=== PATIENT | male | born 1955 | race Caucasian/White ===

== ENCOUNTER 2016-10-10 10:07 | Emergency (ER) | payer BC ==
[~2016-10-10] VITALS: Ht 177.8 cm; Wt 68.0 kg
[~2016-10-10 10:07] MED LIST: ADULT LOW DOSE81 MG PO; ALBUTEROL-200 PUFFS/ IH; BACTRIM DS 8001 TA1 PO; BACTROBAN2% TP; BREO ELLIPTA 21 EACH IH; DORZOLAMIDE HYD10 M1 OP; KEFLEX500 M1 PO; LIPITOR40 M1 PO; NOMEDS *; OMEPRAZOLE40 MG PO; PREDNISONE 5MG.5 MG PO; PROAIR HFA0.09 MG/AC IH; ZOFRAN4 MG PO
--- NOTE | 2016-10-10 10:20 | Emergency Room Report ---
History of Present Illness Time Seen by [id number] Presenting Problem in Triage Pt arrived: Presenting Problem: Onset of symptoms date/time:/ or onset unknown for: Treatment Prior to Arrival: [employer] Provided by: Sepsis Risk Assessment: Temp: B/P: MAP: Pulse: Resp: Recent fever? Clinical Suspician of Infection? Mental Status: Sepsis Risk: Have you (or family members/close friends) recently traveled outside the [place]? If Yes, where/when: Have you had exposure to infectious disease within the past month? TB? Other? Specify: Source patient, RN notes reviewed, RN/MD Exam Limitations no limitations Comment This is a 61-year-old male patient presented emergency room with left- sided chest wall pain, worse with deep inspiration, worse with palpation over his LEFT chest wall. Patient underwent a cardiac catheterization approximately one week ago, by Dr. Bob Mckeon, which was normal, with the patinet requiring any stents. Patient stated that he went to work since the heart cath, and had no further symptoms. He went to mow his lawn yesterday, and when he walked in the house he started having some reproducible precordial chest wall pain, worse with palpation and deep inspiration. He denies any shortness of breath or diaphoresis. He has an appointment with Dr. Bob Mckeon tomorrow, scheduled for one week ago. ALLERGIES Coded Allergies: No Known Allergies (09/28/16) Home Medications Active Scripts Atorvastatin Calcium (Lipitor 40MG) 40 MG PO QHS #30 TAB Ref 2 Prov: 09/29/16 Aspirin (Adult Low Dose Aspirin EC) 81 MG PO DAILY #30 Ref 2 Prov: 09/29/16 Reported Medications Omeprazole (Omeprazole 40MG) 40 MG PO DAILY Fluticasone/Vilanterol (Breo Ellipta 200-25 Mcg INH) 1 EACH IH DAILY #60 DORZOLAMIDE HCL/TIMOLOL MALEAT (Dorzolamide-Timolol Eye Drops) 10 ML OP BID #10 History Medical History General CAD? No Angina: No DE: No Hypertension? No Hyperlipidemia? No CHF? No DVT? No PE? No COPD? Yes Asthma? No Anemia? No GERD? Yes Gastric ulcers? No GI Bleed? No Hernia? No Thyroid Problems? No Hypothyroidism? No CVA? No Seizures? No Diabetes? No Renal Insuffiency? No End Stage Renal Disease? No UTI? No Stones? No BPH? No GB Disease: No Nephritic Syndrome? No Asplenia? No Hepatitis? No Sickle Cell Disease? No Arthritis? No Migraines? No Cataracts? No Glaucoma? No MRSA? No HIV? No TB? No Anxiety? No Depression? No Cancer? No More? Yes Additional hx: 1. PNEUMONIA 2. CHRONIC BRONCHITIS 3. TOBACCO USE Immunization Hx DT/Tetanus 1-4 Years Ago Pneumonia Received In Past Surgical Hx Previous Surgery?N Family History Family Hx Diabetes Yes CAD Yes Hypertension No Hyperlipidemia No Cancer No TB No Social History Smoking Hx Packs/day 1 1/2 - 2 Packs Alcohol Alcohol: No Review of Systems All Other Systems Reviewed and Negative Cardiovascular chest pain Physical Exam Vital Signs Vital Signs Date Time Temp Pulse Resp B/P Pulse O2 O2 Flow FiO2 Ox Delivery Rate 10/10 1101 98.6 81 16 113/77 99 10/10 1010 98.6 88 16 126/87 99 General Appearance normal appearance, WD/WN, no apparent distress Neck normal inspection, non-tender, supple, full range of motion Respiratory Status Yes: trachea midline, chest symmetrical, tender on palpation (LEFT chest wall). No: respiratory distress. Lung Sounds bilateral: normal breath sounds, lungs clear. Cardiovascular normal exam, regular rate/rhythm, no peripheral edema, no gallop, no JVD, no murmur, no rub, normal peripheral pulses Gastrointestinal normal bowel sounds, normal exam, non tender, soft, no organomegaly Extremities non-tender, normal range of motion, normal inspection Neurologic alert, normal exam, oriented x 3 Mental status normal mood/affect Skin intact, normal color, warm/dry Medical Decision Making LABS/Meds/Orders Pt receiving controlled substance in ED? No Comment Chest x-ray was not taken prior to patient discharge. Upon evaluation patient appears medically stable, no acute distress. I reassured the patient of his normal lab results and electrocardiogram obtained today, which in conjunction with his recent cardiac catheterization make his risk for an ACS very low at this time. Patient encouraged to keep his appointment with Dr. Bob Mckeon tomorrow, as already scheduled. His chest wall pain appears pleuritic in nature, noncardiac. Results/Orders Laboratory Tests 10/10/16 1005: Creatine Kinase 168, CK-MB (CK-2) Rel Index 0.8, CK and CKMB Interp 1.3, Troponin I < 0.02 10/10/16 1005: Sodium 138, Potassium 3.8, Chloride 102, Carbon Dioxide 26, BUN 18, Creatinine 1.3, Estimated Creat Clear 57, Estimated GFR (MDRD) 56, Glucose 109 H, Calcium 9.2, Total Bilirubin 0.4, AST 18, ALT 31, Alkaline Phosphatase 79, Total Protein 8.0, Albumin 4.2, Globulin 3.8 H, Albumin/Globulin Ratio 1.1, WBC 6.1, RBC 4.84 , Hgb 15.3, Hct 44.2, MCV 91.2, RDW 13.3, Plt Count 199, MPV 6.5 L, Gran % 71.3 , Gran # 4.4, Lymphocytes % 20.4, Monocytes % 5.8, Eosinophils % 1.8, Basophils % 0.6, Lymphocytes # 1.3, Monocytes # 0.4, Eosinophils # 0.1, Basophils # 0.0, PUBS MCHC 34.6, MCH 31.6 H Orders Procedure Date/time Status CBC WITH AUTO DIFF 10/10 1020 Complete CHEM 12 PROFILE 10/10 1020 Complete ELECTROCARDIOGRAM REQUEST 10/10 1019 Active CHEST(2 VIEWS-NOT PORTABLE) 10/10 1019 Active CARDIAC ENZYMES 10/10 1019 Complete CM/EKG CM/building admin Rhythm Normal Sinus Rhythm Rate 85 Ectopy No Comments no acute ischemic changes EKG rate, NSR, rhythm, no evid. of ischemic chgs, no ectopy, normal QRS, normal MI, normal EKG, no EKG for comparison, non-spec. ST/Twave chgs, ST elevation, ST depression, LBBB, RBBB, ectopy, abnormal Q waves Departure Departure Time of Disposition 1047 Disposition DC Home or Self Care(routine) Clinical Impression Primary Impression: Chest pain Qualifiers: Chest pain type: unspecified Qualified Code: R07.9 - Chest pain, unspecified Condition STABLE Referrals Bob Mckeon MD tomorrow as already scheduled Patient Instructions DI for Chest Pain Additional Instructions Please follow-up with Dr. Bob Mckeon tomorrow, as are the scheduled. Discharge Counseling Counseled pt/family regarding diagnosis, test results, medications/RX, home care, follow up needs Comment Please follow-up with Dr. Bob Mckeon tomorrow, as are the scheduled. ED Critical Care Critical Care No at 1210
[2016-10-10 10:23] LABS: HEMOGLOBIN 15.3 g/dL (14.1-18.0); LYMPH # 1.3 K/mm3 (0.7-4.5); LYMPH % 20.4 % (10-50)
--- OUTSIDE RECORDS SUMMARY | 2016-10-10 10:24 | External Medical Summary Rpt ---
Author Author [employer] Moura, NASEEM Moura Organization [employer] Address Unknown Phone Unavailable
--- OUTSIDE RECORDS SUMMARY | 2016-10-10 10:24 | External Medical Summary Rpt ---
Author Author , Organization [employer] Address Unknown Phone Unavailable Purpose Continuity of Care Document - 09-30-2016 through 2016 Problems Code Diagnosis DOS Provider Status G89.29 Other 09-30-2016 chronic pain J44.9 Chronic 09-30-2016 obstructive pulmonary disease, unspecified K21.9 Gastro-esop 09-30-2016 hageal reflux disease without esophagitis R07.9 Chest pain, 09-30-2016 unspecified B59 PNEUMOCYSTO SIS J44.1 CHRONIC OBSTRUCTIVE PULMONARY DISEASE W (ACUTE) EXACERBATIO N R03.0 Elevated blood-press ure reading, without diagnosis of hypertensio n R07.89 OTHER CHEST PAIN S61.412A LACERATION WITHOUT FOREIGN BODY OF LEFT HAND, INIT ENCNTR Results Labs Lab Lab Date Result Refere Interp Status Commen Order Detail nces retati t Range on Troponin T SerPl Ql (10-01-2016 15:46) Troponi 0.01 0.00-0. complet n I 017 ng/mL 07 ed SerPl-m 15:46 Cnc D Dimer PPP-aCnc (10-01-2016 15:40) D dimer 0.44 0.00-0. complet FEU 017 mg/L 50 ed PPP-mCn 15:40 (FEU) c BNP SerPl-mCnc (10-01-2016 15:40) BNP 14.0 0.0-100 complet SerPl-m 017 pg/mL .0 ed Cnc 15:40 LPL SerPl-cCnc (10-01-2016 15:40) Lipase 47 U/L 6-51 complet SerPl-c 017 ed Cnc 15:40 Comp Metab 1998 Pnl SerPl (10-01-2016 15:40) Anion 1.0 3.0-11. complet Gap3 017 mmol/L 0 ed SerPl-s 15:40 Cnc BUN/Cre 05-06-2 11.8 7.0-25. complet at 017 0 ed SerPl 15:40 Albumin 1.5 1.5-2.5 complet /Glob 017 g/dL ed SerPl 15:40 Globuli 2.8 complet n Ur 017 gm/dL ed Elph-mC 15:40 nc GFR/BSA 68 >60 complet .pred 017 mL/min/ ed SerPl 15:40 1.73 MDRD-Ar VRat Bilirub 0.3 0.3-1.2 complet 017 mg/dL ed SerPl-m 15:40 Cnc ALP 73 U/L 25-100 complet SerPl-c 017 ed Cnc 15:40 ALT 20 U/L 7-40 complet SerPl w 017 ed 15:40 P-5'-P- cCnc Albumin 4.30 3.20-4. complet 017 g/dL 80 ed SerPl-m 15:40 Cnc Prot 7.1 5.7-8.2 complet SerPl-m 017 g/dL ed Cnc 15:40 Calcium 10.0 8.7-10. complet 017 mg/dL 4 ed XXX-sCn 15:40 c CO2 32.0 20.0-31 complet SerPl-s 017 mmol/L .0 ed Cnc 15:40 Chlorid 106 99-109 complet e 017 mmol/L ed SerPl-s 15:40 Cnc Potassi 4.3 3.5-5.5 complet um 017 mmol/L ed Bld-sCn 15:40 c Sodium 139 132-146 complet Bld-sCn 017 mmol/L ed c 15:40 Creat 2 1.10 0.60-1. complet Bld-mCn 017 mg/dL 30 ed c 15:40 BUN 10-01-2 13 9-23 complet Bld-mCn 017 mg/dL ed c 15:40 AST 2 18 U/L 0-33 complet SerPl-c 017 ed Cnc 15:40 Glucose 109 70-100 complet 017 mg/dL ed Bld-mCn 15:40 c CBC W Diff pnl,unspecified Bld (10-01-2016 15:40) Imm 05-06-2 0.01 0.00-0. complet Granulo 017 10*3/mm 03 ed cytes # 15:40 3 Bld Basophi 05-06-2 0.03 0.00-0. complet ls # 017 10*3/mm 20 ed Bld 15:40 3 Auto Eosinop 05-06-2 0.24 0.10-0. complet hil # 017 10*3/mm 30 ed Bld 15:40 3 Auto Monocyt 05-06-2 0.47 0.00-1. complet es # 017 10*3/mm 00 ed Bld 15:40 3 Auto Lymphoc 05-06-2 1.57 0.60-4. complet ytes # 017 10*3/mm 80 ed Bld 15:40 3 Auto Neutrop 05-06-2 4.51 1.50-8. complet hils # 017 10*3/mm 30 ed Bld 15:40 3 Auto Imm 05-06-2 0.1 % 0.0-0.6 complet Granulo 017 ed cytes/l 15:40 euk NFr Bld Basophi 05-06-2 0.4 % 0.0-1.0 complet ls/leuk 017 ed NFr 15:40 Bld Auto Eosinop 05-06-2 3.5 % 0.0-3.0 complet hil/mara 017 ed k NFr 15:40 Bld Auto Monocyt 05-06-2 6.9 % 0.0-12. complet es/leuk 017 0 ed NFr 15:40 Bld Auto Lymphoc 05-06-2 23.0 % 24.0-44 complet ytes/le 017 .0 ed uk NFr 15:40 Bld Auto Neutrop 05-06-2 66.1 % 41.0-71 complet hils/le 017 .0 ed uk NFr 15:40 Bld Auto Platele 05-06-2 189 150-450 complet t # Bld 017 10*3/mm ed Auto 15:40 3 PMV Bld 05-06-2 10.0 fL 6.0-12. complet Auto 017 0 ed 15:40 RDW RBC 05-06-2 47.8 fl 37.0-54 complet Auto 017 .0 ed 15:40 RDW RBC 05-06-2 14.1 % 11.3-14 complet 017 .5 ed Auto-Rt 15:40 o MCHC 05-06-2 32.8 32.0-36 complet RBC 017 g/dL .0 ed Auto-mC 15:40 nc MCH RBC 05-06-2 30.6 pg 27.0-31 complet Qn 017 .0 ed Auto 15:40 MCV RBC 05-06-2 93.1 fL 80.0-99 complet Auto 017 .0 ed 15:40 Hct VFr 05-06-2 47.2 % 38.9-50 complet Bld 017 .9 ed Auto 15:40 Hgb 05-06-2 15.5 13.1-17 complet Bld-mCn 017 g/dL .5 ed c 15:40 RBC # 05-06-2 5.07 4.20-5. complet Bld 017 10*6/mm 76 ed Auto 15:40 3 WBC 05-06-2 6.83 3.50-10 complet nRBC 017 10*3/mm .80 ed cor # 15:40 3 Bld
--- OUTSIDE RECORDS SUMMARY | 2016-10-10 10:24 | External Medical Summary Rpt ---
Demographics Preferred Language Amharic Marital Status Unknown Mandaen Affiliation Unknown Race Unknown Ethnic Group Unknown Author Author , Organization [employer] Address Unknown Phone Unavailable Purpose Continuity of Care Document - through 2016 Immunization No patient found.
--- OUTSIDE RECORDS SUMMARY | 2016-10-10 10:24 | External Medical Summary Rpt ---
Demographics Preferred Language Turkmen Marital Status Unknown Zoroastrian Affiliation Unknown Race Unknown Ethnic Group Unknown Author Author , Organization [employer] Address Unknown Phone Unavailable Purpose Continuity of Care Document - through 2016 Immunization No patient found.
[2016-10-10 11:01] VITALS: BP 113/77
[2016-10-16] MEDS ORDERED: DICLOFENAC SODI75 M2 PO (12:55)
== END 2016-10-10 11:02 | disposition home or self-care (01) ==
LOC: ER 10:07
PROVIDERS: Emergency Medicine
DX: R07.9 Chest pain, unspecified (principal); J44.9 Chronic obstructive pulmonary disease, unspecified; Z72.0 Tobacco use

== ENCOUNTER 2016-10-30 22:44 | Emergency (ER) | payer BC ==
[~2016-10-30] VITALS: Ht 177.8 cm; Wt 78.0 kg
[~2016-10-30 22:44] MED LIST changes: +DICLOFENAC SODI75 M2 PO
[2016-10-30] MEDS ORDERED: HYOSCYAMINE0.125 M2 PO (22:55)
--- OUTSIDE RECORDS SUMMARY | 2016-10-30 22:56 | External Medical Summary Rpt ---
[...] reading, without diagnosis of hypertensio n R07.89 Other chest pain R10.2 PELVIC AND PERINEAL PAIN S61.412A LACERATION WITHOUT FOREIGN BODY OF [...] mmol/L 0 ed SerPl-s 15:40 Cnc BUN/Cre 2 11.8 7.0-25. complet at 017 0 ed SerPl 15:40 Albumin 2 1.5 1.5-2.5 complet /Glob 017 g/dL ed SerPl 15:40 Globuli 10-01-2 2.8 complet n Ur 017 gm/dL ed Elph-mC 15:40 nc GFR/BSA 68 >60 complet .pred 017 mL/min/ ed SerPl 15:40 1.73 MDRD-Ar VRat Bilirub 2 0.3 0.3-1.2 complet 017 mg/dL ed SerPl-m 15:40 Cnc ALP 73 U/L 25-100 complet SerPl-c 017 ed Cnc 15:40 ALT 20 U/L 7-40 complet SerPl w 017 ed 15:40 P-5'-P- cCnc Albumin 4.30 3.20-4. complet 017 g/dL 80 ed SerPl-m 15:40 Cnc Prot 10-01-2 7.1 5.7-8.2 complet SerPl-m 017 g/dL ed Cnc 15:40 Calcium 10-01-2 10.0 8.7-10. complet 017 mg/dL 4 ed XXX-sCn 15:40 c CO2 10-01-2 32.0 20.0-31 complet SerPl-s 017 mmol/L .0 ed Cnc 15:40 Chlorid 10-01-2 106 99-109 complet e 017 mmol/L ed SerPl-s 15:40 Cnc Potassi 2 4.3 3.5-5.5 complet um 017 mmol/L ed Bld-sCn 15:40 c Sodium 10-01-2 139 132-146 complet Bld-sCn 017 mmol/L ed c 15:40 Creat 10-01-2 1.10 0.60-1. complet Bld-mCn 017 mg/dL 30 ed c 15:40 BUN 06-2 13 9-23 complet Bld-mCn 017 mg/dL ed c 15:40 AST 10-01-2 18 U/L 0-33 complet SerPl-c 017 ed Cnc 15:40 Glucose 062 109 70-100 complet 017 mg/dL ed Bld-mCn [...] .0 ed Auto-mC 15:40 nc MCH RBC 06-2 30.6 pg 27.0-31 complet Qn 017 .0 ed Auto 15:40 MCV RBC -06-2 93.1 fL 80.0-99 complet Auto 017 .0 ed 15:40 Hct VFr -06-2 47.2 % 38.9-50 complet Bld 017 .9 ed Auto 15:40 Hgb 05-06-2 15.5 13.1-17 complet Bld-mCn 017 g/dL .5 ed c 15:40 RBC # 05-06-2 5.07 4.20-5. complet Bld 017 10*6/mm 76 ed Auto 15:40 3 WBC 05-06-2 6.83 3.50-10 complet nRBC 017 10*3/mm .80 ed cor # 15:40 3 Bld
--- OUTSIDE RECORDS SUMMARY | 2016-10-30 22:56 | External Medical Summary Rpt ---
Author Author , Organization [employer] Address Unknown Phone Unavailable Purpose Continuity of Care Document - 05-16-2016 through 2016 Immunization Name Date Route CVX Reacti Commen Provid Is Given on t er Refuse d PPV23 [facility]1 No 2016 ical Inform ation - Source Unspec ified
--- OUTSIDE RECORDS SUMMARY | 2016-10-30 22:56 | External Medical Summary Rpt ---
Author Author , Organization [employer] Address Unknown Phone Unavailable Purpose Continuity of Care Document - 05-16-2016 through 2016 Immunization Name Date Route CVX Reacti Commen Provid Is Given on t er Refuse d PPV23 [facility]1 No 2016 ical Inform ation - Source Unspec ified
--- OUTSIDE RECORDS SUMMARY | 2016-10-30 22:57 | External Medical Summary Rpt ---
Author Author NASEEM Moura, [employer] Organization [employer] Address Unknown Phone Unavailable Results Amylase [Enzymatic activity/volume] in Serum or Plasma Observa Value Referen Units Interpr Notes Date tion ce etation Range Amylase 25 - 115 U/L Normal No October 25 [Enzymati informati 2016 7:10 c on in PM activity/ source volume] data in Serum or Plasma Comprehensive metabolic 2000 panel in Serum or Plasma Observa Value Referen Units Interpr Notes Date tion ce etation Range Albumin/G 1.1 - 1.8 No Normal No October 25 lobulin informati informati 2016 7:10 [Mass on in on in PM ratio] in source source Serum or data data Plasma Albumin 3.4 - 5.0 gm/dL Normal No October 25 [Mass/vol informati 2016 7:10 ume] in on in PM Serum or source Plasma data Alkaline 46 - 116 U/L Normal No October 25 phosphata informati 2016 7:10 se on in PM [Enzymati source c data activity/ volume] in Serum or Plasma Bilirubin 0.2 - 1.0 mg/dL Normal No October 25 .total informati 2016 7:10 [Mass/vol on in PM ume] in source Serum or data Plasma Urea 7 - 18 mg/dL High No October 25 nitrogen informati 2016 7:10 [Mass/vol on in PM ume] in source Serum or data Plasma Calcium 8.5 - mg/dL Normal No October 25 [Mass/vol 10.1 informati 2016 7:10 ume] in on in PM Serum or source Plasma data Chloride 98 - 107 mmoL/L Normal No October 25 [Moles/vo informati 2016 7:10 lume] in on in PM Serum or source Plasma data Carbon 21.0 - mmoL/L Normal No October 25 dioxide, 32.0 informati 2017 7:10 total on in PM [Moles/vo source lume] in data Serum or Plasma Creatinin 0.70 - mg/dL High No October 25 e 1.30 informati 2017 7:10 [Mass/vol on in PM ume] in source Serum or data Plasma Creatinin 50 - 200 ML/MIN Normal No October 25 e renal informati 2016 7:10 clearance on in PM source predicted data by Cockcroft -Gault formula Estimated >60 ML/MIN No REFERENCE October 25 informati RANGE: 2017 7:10 glomerula on in >60 PM r source ML/MIN/1. filtratio data 73 SQUARE n rate METERSIf (GF this patient is -A merican, then multiply theresult by 1.210. Globulin 1.3 - 3.2 gm/dL High No October 25 [Mass/vol informati 2016 7:10 ume] in on in PM Serum source data Glucose 74 - 106 mg/dL High No October 25 [Mass/vol informati 2016 7:10 ume] in on in PM Serum or source Plasma data Potassium 3.5 - 5.1 mmoL/L Normal No October 25 inform2016 7:10 [Moles/vo on in PM lume] in source Serum or data Plasma Sodium 136 - 145 mmoL/L Normal No October 25 [Moles/vo informati 2016 7:10 lume] in on in PM Serum or source Plasma data Aspartate 15 - 37 U/L Normal No October 25 informati 2016 7:10 aminotran on in PM sferase source [Enzymati data c activity/ volume] in Serum or Plasma Alanine 12 - 78 U/L Normal No October 25 aminotran informati 2016 7:10 sferase on in PM [Enzymati source c data activity/ volume] in Serum or Plasma Protein 6.4 - 8.2 gm/dL Normal No October 25 [Mass/vol informati 2016 7:10 ume] in on in PM Serum or source Plasma data Lipase [Enzymatic activity/volume] in Serum or Plasma Observa Value Referen Units Interpr Notes Date tion ce etation Range Lipase 73 - 393 U/L Normal No October 25 [Enzymati informati 2016 7:10 c on in PM activity/ source volume] data in Serum or Plasma CBC W Auto Differential panel in Blood Observa Value Referen Units Interpr Notes Date tion ce etation Range Basophils 0 - 0.2 K/MM3 Normal No October 25 inform2016 7:10 [#/volume on in PM ] in source Blood by data Automated count Basophils 0.1 - 2.0 % Normal No October 25 informati 2016 7:10 leukocyte on in PM s in source Blood by data Automated count Eosinophi 0.0 - 0.4 K/mm3 Normal No October 25 ls informati 2016 7:10 [#/volume on in PM ] in source Blood by data Automated count Eosinophi 0.1 - % Normal No October 25 ls/100 12.0 informati 2016 7:10 leukocyte on in PM s in source Blood by data Automated count Granulocy 1.3 - 8.0 K/mm3 Normal No October 25 fozia informati 2016 7:10 [#/volume on in PM ] in source Blood by data Automated count Granulocy 37.0 - % Normal No October 25 fozia/100 80.0 informati 2016 7:10 leukocyte on in PM s in source Blood by data Automated count Hematocri 42.0 - % Normal No October 25 t [Volume 52.0 informati 2016 7:10 on in PM Fraction] source of Blood data Hemoglobi 14.1 - g/dL Normal October 25 n 18.0 informati 2016 7:10 [Mass/vol on in PM ume] in source Blood data Lymphocyt 0.7 - 4.5 K/mm3 Normal No October 25 es informati 2016 7:10 [#/volume on in PM ] in source Unspecifi data ed specimen by Automated count Lymphocyt 10 - 50 % Normal No October 25 es informati 2016 7:10 [#/volume on in PM ] in source Unspecifi data ed specimen by Automated count Erythrocy 27 - 31.2 pg Normal No October 25 te mean informati 2016 7:10 corpuscul on in PM ar source hemoglobi data n [Entitic mass] Erythrocy 31.8 - g/dl Normal No October 25 te mean 35.4 informati 2016 7:10 corpuscul on in PM ar source hemoglobi data n concentra tion [Mass/vol ume] by Automated count Erythrocy 82.2 - fl Normal No October 25 te mean 97.8 informati 2016 7:10 corpuscul on in PM ar volume source [Entitic data volume] by Automated count Monocytes 0.1 - 1.0 K/mm3 Normal No October 25 informati 2016 7:10 [#/volume on in PM ] in source Blood by data Automated count Monocytes 1.7 - 9.3 % Normal No October 252016 7:10 leukocyte on in PM s in source Blood by data Automated count Platelet 7.4 - fl Low No October 25 mean 10.4 2016 7:10 volume on in PM [Entitic source volume] data in Blood by Automated count Platelets 142 - 424 K/mm3 Normal No October 252016 7:10 [#/volume on in PM ] in source Blood data Erythrocy 4.6 - 6.2 M/mm3 Normal No October 25 fozia 2016 7:10 [#/volume on in PM ] in source Amniotic data fluid Erythrocy 11.5 - % Normal No October 25 te 17.5 2016 7:10 distribut on in PM ion width source [Entitic data volume] by Automated count Leukocyte 4.8 - K/MM3 Normal No October 25 s 10.8 2016 7:10 [#/volume on in PM ] in source Blood data CBC W Auto Differential panel in Blood Observa Value Referen Units Interpr Notes Date tion ce etation Range Basophils 0 - 0.2 K/MM3 Normal No October 162016 [#/volume on in 12:50 PM ] in source Blood by data Automated count Basophils 0.1 - 2.0 % Normal No October 162016 leukocyte on in 12:50 PM s in source Blood by data Automated count Eosinophi 0.0 - 0.4 K/mm3 Normal No October 16 ls 2016 [#/volume on in 12:50 PM ] in source Blood by data Automated count Eosinophi 0.1 - % Normal No October 16 ls/100 12.0 2016 leukocyte on in 12:50 PM s in source Blood by data Automated count Granulocy 1.3 - 8.0 K/mm3 Normal No October 16 fozia 2016 [#/volume on in 12:50 PM ] in source Blood by data Automated count Granulocy 37.0 - % Normal No October 16 fozia/100 80.0 2016 leukocyte on in 12:50 PM s in source Blood by data Automated count Hematocri 42.0 - % Normal No October 16 t [Volume 52.0 2016 on in 12:50 PM Fraction] source of Blood data Hemoglobi 14.1 - g/dL Normal No October 16 n 18.0 2016 [Mass/vol on in 12:50 PM ume] in source Blood data Lymphocyt 0.7 - 4.5 K/mm3 Normal No October 16 es inform2016 [#/volume on in 12:50 PM ] in source Unspecifi data ed specimen by Automated count Lymphocyt 10 - 50 % Normal No October 16 es inform2016 [#/volume on in 12:50 PM ] in source Unspecifi data ed specimen by Automated count Erythrocy 27 - 31.2 pg Normal No October 16 te mean 2016 corpuscul on in 12:50 PM ar source hemoglobi data n [Entitic mass] Erythrocy 31.8 - g/dl Normal No October 16 te mean 35.4 2016 corpuscul on in 12:50 PM ar source hemoglobi data n concentra tion [Mass/vol ume] by Automated count Erythrocy 82.2 - fl Normal No October 16 te mean 97.8 2016 corpuscul on in 12:50 PM ar volume source [Entitic data volume] by Automated count Monocytes 0.1 - 1.0 K/mm3 Normal No October 16 inform2016 [#/volume on in 12:50 PM ] in source Blood by data Automated count Monocytes 1.7 - 9.3 % Normal No October 16 /100 2016 leukocyte on in 12:50 PM s in source Blood by data Automated count Platelet 7.4 - fl Low No October 16 mean 10.4 2016 volume on in 12:50 PM [Entitic source volume] data in Blood by Automated count Platelets 142 - 424 K/mm3 Normal No October 162016 [#/volume on in 12:50 PM ] in source Blood data Erythrocy 4.6 - 6.2 M/mm3 Normal No October 16 fozia informati 2016 [#/volume on in 12:50 PM ] in source Amniotic data fluid Erythrocy 11.5 - % Normal No October 16 te 17.5 2016 distribut on in 12:50 PM ion width source [Entitic data volume] by Automated count Leukocyte 4.8 - K/MM3 Normal No October 16 s 10.8 informati 2016 [#/volume on in 12:50 PM ] in source Blood data Comprehensive metabolic 2000 panel in Serum or Plasma Observa Value Referen Units Interpr Notes Date tion ce etation Range Albumin/G 1.1 - 1.8 No Normal No October 10 lobulin informati informati 2016 [Mass on in on in 10:05 AM ratio] in source source Serum or data data Plasma Albumin 3.4 - 5.0 gm/dL Normal No October 10 [Mass/vol informati 2016 ume] in on in 10:05 AM Serum or source Plasma data Alkaline 46 - 116 U/L Normal No October 10 phosphata inform2016 se on in 10:05 AM [Enzymati source c data activity/ volume] in Serum or Plasma Bilirubin 0.2 - 1.0 mg/dL Normal No October 10 .total informati 2016 [Mass/vol on in 10:05 AM ume] in source Serum or data Plasma Urea 7 - 18 mg/dL Normal No October 10 nitrogen informati 2016 [Mass/vol on in 10:05 AM ume] in source Serum or data Plasma Calcium 8.5 - mg/dL Normal No October 10 [Mass/vol 10.1 informati 2016 ume] in on in 10:05 AM Serum or source Plasma data Chloride 98 - 107 mmoL/L Normal No October 10 [Moles/vo informati 2016 lume] in on in 10:05 AM Serum or source Plasma data Carbon 21.0 - mmoL/L Normal No October 10 dioxide, 32.0 informati 2016 total on in 10:05 AM [Moles/vo source lume] in data Serum or Plasma Creatinin 0.70 - mg/dL Normal No October 10 e 1.30 informati 2016 [Mass/vol on in 10:05 AM ume] in source Serum or data Plasma Creatinin 50 - 200 ML/MIN Normal No October 10 e renal inform2016 clearance on in 10:05 AM source predicted data by Cockcroft -Gault formula Estimated >60 ML/MIN No REFERENCE October 10 informati RANGE: 2017 glomerula on in >60 10:05 AM r source ML/MIN/1. filtratio data 73 SQUARE n rate METERSIf (GF this patient is -A merican, then multiply theresult by 1.210. Globulin 1.3 - 3.2 gm/dL High No October 10 [Mass/vol informati 2016 ume] in on in 10:05 AM Serum source data Glucose 74 - 106 mg/dL High No October 10 [Mass/vol informati 2016 ume] in on in 10:05 AM Serum or source Plasma data Potassium 3.5 - 5.1 mmoL/L Normal No October 102016 [Moles/vo on in 10:05 AM lume] in source Serum or data Plasma Sodium 136 - 145 mmoL/L Normal No October 10 [Moles/vo 2016 lume] in on in 10:05 AM Serum or source Plasma data Aspartate 15 - 37 U/L Normal No October 102016 aminotran on in 10:05 AM sferase source [Enzymati data c activity/ volume] in Serum or Plasma Alanine 12 - 78 U/L Normal No October 10 aminotran 2016 sferase on in 10:05 AM [Enzymati source c data activity/ volume] in Serum or Plasma Protein 6.4 - 8.2 gm/dL Normal No October 10 [Mass/vol 2016 ume] in on in 10:05 AM Serum or source Plasma data CBC W Auto Differential panel in Blood Observa Value Referen Units Interpr Notes Date tion ce etation Range Basophils 0 - 0.2 K/MM3 Normal No October 102016 [#/volume on in 10:05 AM ] in source Blood by data Automated count Basophils 0.1 - 2.0 % Normal No October 102016 leukocyte on in 10:05 AM s in source Blood by data Automated count Eosinophi 0.0 - 0.4 K/mm3 Normal No October 10 ls 2016 [#/volume on in 10:05 AM ] in source Blood by data Automated count Eosinophi 0.1 - % Normal No October 10 ls/100 12.0 2016 leukocyte on in 10:05 AM s in source Blood by data Automated count Granulocy 1.3 - 8.0 K/mm3 Normal No October 10 fozia 2016 [#/volume on in 10:05 AM ] in source Blood by data Automated count Granulocy 37.0 - % Normal No October 10 fozia/100 80.0 2016 leukocyte on in 10:05 AM s in source Blood by data Automated count Hematocri 42.0 - % Normal No October 10 t [Volume 52.0 2016 on in 10:05 AM Fraction] source of Blood data Hemoglobi 14.1 - g/dL Normal No October 10 n 18.0 2016 [Mass/vol on in 10:05 AM ume] in source Blood data Lymphocyt 0.7 - 4.5 K/mm3 Normal No October 10 es 2016 [#/volume on in 10:05 AM ] in source Unspecifi data ed specimen by Automated count Lymphocyt 10 - 50 % Normal No October 10 es informati 2016 [#/volume on in 10:05 AM ] in source Unspecifi data ed specimen by Automated count Erythrocy 27 - 31.2 pg High No October 10 te mean 2016 corpuscul on in 10:05 AM ar source hemoglobi data n [Entitic mass] Erythrocy 31.8 - g/dl Normal No October 10 te mean 35.4 inform2016 corpuscul on in 10:05 AM ar source hemoglobi data n concentra tion [Mass/vol ume] by Automated count Erythrocy 82.2 - fl Normal No October 10 te mean 97.8 inform2016 corpuscul on in 10:05 AM ar volume source [Entitic data volume] by Automated count Monocytes 0.1 - 1.0 K/mm3 Normal No October 102016 [#/volume on in 10:05 AM ] in source Blood by data Automated count Monocytes 1.7 - 9.3 % Normal No October 10 /100 2016 leukocyte on in 10:05 AM s in source Blood by data Automated count Platelet 7.4 - fl Low No October 10 mean 10.4 informati 2016 volume on in 10:05 AM [Entitic source volume] data in Blood by Automated count Platelets 142 - 424 K/mm3 Normal No October 102016 [#/volume on in 10:05 AM ] in source Blood data Erythrocy 4.6 - 6.2 M/mm3 Normal No October 10 fozia informati 2016 [#/volume on in 10:05 AM ] in source Amniotic data fluid Erythrocy 11.5 - % Normal No October 10 te 17.5 informati 2016 distribut on in 10:05 AM ion width source [Entitic data volume] by Automated count Leukocyte 4.8 - K/MM3 Normal No October 10 s 10.8 informati 2016 [#/volume on in 10:05 AM ] in source Blood data
[2016-10-30 23:08] LABS: URINE BILIRUBIN - DIPSTICK NEGATIVE (NEG); URINE BLOOD NEGATIVE (NEG)
--- NOTE | 2016-10-30 23:48 | Emergency Room Report ---
History of Present Illness Time Seen by [id number] Presenting Problem in Triage Pt arrived:Walked Presenting Problem:C/O PAIN TO LOWER ABD. 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 N Clinical Suspician of Infection? N Mental Status: 1 - Regular (Normal Baseline) Sepsis Risk:Low Sepsis Risk Have you (or family members/close friends) recently traveled outside the [place]? N If Yes, where/when: Have you had exposure to infectious disease within the past month? N TB? Other? Specify: Source patient, RN notes reviewed, family, RN/MD Exam Limitations no limitations Comment This is a 61-year-old gentleman arriving to the emergency room with dysuria, no dysuria and frequency for the past few days. He was seen in this emergency room just recently with abdominal pain and he was diagnosed with cholelithiasis. He is scheduled to see his PCP in the morning, for a referral to general surgeon, for elective cholecystectomy evaluation. Simultaneously the patient has been also having suprapubic tenderness, associated with nocturia and frequency. He has definitely noticed a change in his urinary pattern, with more notable no urination than usual, over the past few months. ALLERGIES Coded Allergies: No Known Allergies (09/28/16) Home Medications Active Scripts Atorvastatin Calcium (Lipitor 40MG) 40 MG PO QHS #30 TAB Ref 2 Prov: 09/29/16 Aspirin (Adult Low Dose Aspirin EC) 81 MG PO DAILY #30 Ref 2 Prov: 09/29/16 Reported Medications Omeprazole (Omeprazole 40MG) 40 MG PO DAILY Fluticasone/Vilanterol (Breo Ellipta 200-25 Mcg INH) 1 EACH IH DAILY #60 DORZOLAMIDE HCL/TIMOLOL MALEAT (Dorzolamide-Timolol Eye Drops) 10 ML OP BID #10 Diclofenac Sodium 75 MG PO DAILY #60 Hyoscyamine Sulfate 0.125 MG PO Q4HP PRN BLADDER #60 TAB History Medical History General CAD? No Angina: No VA: No Hypertension? No Hyperlipidemia? No CHF? No DVT? No PE? No COPD? Yes Asthma? No Anemia? No GERD? Yes Gastric ulcers? No GI Bleed? No Hernia? No Thyroid Problems? No Hypothyroidism? No CVA? No Seizures? No Diabetes? No Renal Insuffiency? No End Stage Renal Disease? No UTI? No Stones? No BPH? No GB Disease: No Nephritic Syndrome? No Asplenia? No Hepatitis? No Sickle Cell Disease? No Arthritis? No Migraines? No Cataracts? No Glaucoma? No MRSA? No HIV? No TB? No Anxiety? No Depression? No Cancer? No More? Yes Additional hx: 1. PNEUMONIA 2. CHRONIC BRONCHITIS 3. TOBACCO USE Immunization Hx DT/Tetanus 1-4 Years Ago Pneumonia Received In Past Surgical Hx Previous Surgery?N Family History Family Hx Diabetes Yes CAD Yes Hypertension No Hyperlipidemia No Cancer No TB No Social History Smoking Hx Smoker: Former Smoker Tobacco: Yes Type Cigarettes Packs/day 1 1/2 - 2 Packs Alcohol Alcohol: No Review of Systems All Other Systems Reviewed and Negative Gastrointestinal abdominal pain (suprapubic pain) Genitourinary dysuria, frequency. Physical Exam Vital Signs Vital Signs Date Time Temp Pulse Resp B/P Pulse O2 O2 Flow FiO2 Ox Delivery Rate 10/31 0002 76 20 134/70 99 / 2251 98.7 71 18 148/96 99 General Appearance normal appearance, WD/WN, no apparent distress Respiratory Status Yes: trachea midline, chest symmetrical, non tender chest. No: respiratory distress. Lung Sounds bilateral: normal breath sounds, lungs clear. 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 No Comment Recent medical records reviewed, consistent with RIGHT kidney is a 50 lesion as well as cholelithiasis. Patient's presentation today is consistent with prostatitis, however he seems to have symptoms consistent with benign prostatic hypertrophy as well. Patient advised that he will be started on fluoroquinolones as well as Flomax and he will require to follow-up with one of our urologists, Dr. Soriano or Dr. Holman, at his earliest convenience. He was made aware of his RIGHT kidney exophytic lesion (?malignant). Patient advised that his PCP is already aware, and that she has already scheduled him for a contrast CT of his abdomen and pelvis Results/Orders Laboratory Tests 10/30/16 2300: Urine Color YELLOW, Urine Appearance CLEAR, Urine pH 6.0, Ur Specific [place] <= 1.005, Urine Protein NEGATIVE, Urine Ketones NEGATIVE, Urine Blood NEGATIVE, Urine Nitrate NEGATIVE, Urine Bilirubin NEGATIVE, Urine Urobilinogen 0.2, Ur Leukocyte Esterase NEGATIVE, Amorphous Sediment TRACE, Urine Glucose NEGATIVE Current Medication Orders Sig/Carlos Start time Last Medication Dose Route Stop Time Status Admin Levofloxacin 0 .STK-MED ONE 10/30 2356 DC .ROUTE Tamsulosin HCl 0 .STK-MED ONE 10/30 2356 DC PO Levofloxacin 750 MG ONCE ONE 10/30 2344 DC 10/30 PO 10/30 2345 235 Tamsulosin HCl 0.4 MG ONCE ONE 10/305 DC 10/30 PO 10/30 2345 2358 Orders Procedure Date/time Status URINALYSIS/COMPLETE 10/30 2257 Complete Departure Departure Time of Disposition 2345 Disposition DC Home or Self Care(routine) Clinical Impression Primary Impression: Prostatitis Qualifiers: Prostatitis type: acute Qualified Code: N41.0 - Acute prostatitis Condition STABLE Referrals [place] CHIN,Rj Soriano MD,[place] Patient Instructions DI for Acute Prostatitis Additional Instructions Please follow-up with one of the urologists listed above, Dr. Soriano or Dr. Holman, within the next 1-2 days. Presented the medications prescribed as directed. There is also a right kidney mass, that requires urology follow up, per CT scan obtained October 25, 2016. Discharge Counseling Counseled pt/family regarding diagnosis, test results, medications/RX, home care, follow up needs Comment Please follow-up with one of the urologists listed above, Dr. Soriano or Dr. Holman, within the next 1-2 days. Presented the medications prescribed as directed. There is also a right kidney mass, that requires urology follow up, per CT scan obtained October 25, 2016. Prescriptions Current Visit Scripts Ciprofloxacin HCl (Cipro 500MG TAB) 500 MG PO BID #28 TAB TAMSULOSIN HCL (Flomax 0.4MG) 0.4 MG PO QHS #30 CAP ED Critical Care Critical Care No at 0547
[2016-10-30] MEDS ORDERED: CIPRO 500MG TA500 MG PO (23:50)
[2016-10-30] MEDS ORDERED: FLOMAX 0.4MG C0.4 MG PO (23:53)
[2016-10-31 00:02] VITALS: BP 134/70
[2016-11-03] MEDS ORDERED: AMOXICILLIN500 M2 PO (18:47)
== END 2016-10-31 00:03 | disposition home or self-care (01) ==
LOC: ER 22:44
PROVIDERS: Emergency Medicine
DX: N41.0 Acute prostatitis (principal)

== ENCOUNTER 2016-12-11 19:49 | Emergency (ER) | payer BC ==
[~2016-12-11] VITALS: Ht 180.3 cm; Wt 74.8 kg
[~2016-12-11 19:49] MED LIST changes: +AMOXICILLIN500 M2 PO; +CIPRO 500MG TA500 MG PO; +FLOMAX 0.4MG C0.4 MG PO; +HYOSCYAMINE0.125 M2 PO
--- OUTSIDE RECORDS SUMMARY | 2016-12-11 19:58 | External Medical Summary Rpt ---
Author Author , LORETTA GUSMAN Address Unknown Phone [email or web address] Immunization Name Date Rout CVX Reac Dose Comm Prov Is Faci e tion ent ider Refu lity Give sed n PPV2 12-1 33 0.5 Hist [facility] No [facility] 3 9-20 mL oric 1 1 16 al Info rmat ion - Sour ce Unsp ecif ied
--- OUTSIDE RECORDS SUMMARY | 2016-12-11 19:58 | External Medical Summary Rpt ---
Author Author NASEEM Address Unknown Phone [email or web address] Purpose Continuity of Care Document - through 2016
--- OUTSIDE RECORDS SUMMARY | 2016-12-11 19:58 | External Medical Summary Rpt ---
Author Author NASEEM Address Unknown Phone [email or web address] Purpose Continuity of Care Document - through 2016
--- OUTSIDE RECORDS SUMMARY | 2016-12-11 19:58 | External Medical Summary Rpt ---
Author Author , LORETTA GUSMAN Address Unknown Phone [email or web address] Immunization Name Date Rout CVX Reac Dose Comm Prov Is Faci e tion ent ider Refu lity Give sed n PPV2 12-1 33 0.5 Hist [facility] No [facility] 3 9-20 mL oric 1 1 16 al Info rmat ion - Sour ce Unsp ecif ied
--- OUTSIDE RECORDS SUMMARY | 2016-12-11 19:58 | External Medical Summary Rpt ---
Author Author , NASEEM GUSMAN Address Unknown Phone [email or web address] Purpose Continuity of Care Document - 09-30-2016 through 2016 Problems Code Diagnosis DOS Provider Status G89.29 Other 09-30-2016 chronic pain J44.9 Chronic 09-30-2016 obstructive pulmonary disease, unspecified K21.9 Gastro-esop 09-30-2016 hageal reflux disease without esophagitis R07.9 Chest pain, 09-30-2016 unspecified B59 PNEUMOCYSTO SIS J32.9 CHRONIC SINUSITIS, UNSPECIFIED J44.1 CHRONIC OBSTRUCTIVE PULMONARY DISEASE W (ACUTE) EXACERBATIO N N41.9 INFLAMMATOR Y DISEASE OF PROSTATE, UNSPECIFIED R07.89 OTHER CHEST PAIN R10.2 PELVIC AND PERINEAL PAIN R10.31 RIGHT LOWER QUADRANT PAIN R10.9 UNSPECIFIED ABDOMINAL PAIN S39.011A STRAIN OF MUSCLE, FASCIA AND TENDON OF ABDOMEN, INIT ENCNTR S61.412A LACERATION WITHOUT FOREIGN BODY OF LEFT [...] mmol/L 0 ed SerPl-s 15:40 Cnc BUN/Cre 11.8 7.0-25. complet at 017 0 ed [...] Bld-sCn 017 mmol/L ed c 15:40 Creat 1.10 0.60-1. complet Bld-mCn 017 mg/dL 30 ed c 15:40 BUN 13 9-23 complet Bld-mCn 017 mg/dL ed c 15:40 AST 05-06-2 18 U/L 0-33 complet SerPl-c 017 ed Cnc 15:40 Glucose 05-06-2 109 70-100 complet 017 mg/dL ed Bld-mCn [...]
--- OUTSIDE RECORDS SUMMARY | 2016-12-11 19:58 | External Medical Summary Rpt ---
Author Author , NASEEM GUSMAN Address Unknown Phone [email or web address] Purpose Continuity of Care Document - 09-30-2016 [...]
--- NOTE | 2016-12-11 20:12 | Emergency Room Report ---
History of Present Illness Time Seen by 2010 Presenting Problem in Triage Pt arrived:Walked Presenting Problem:SHORTNESS OF AIR, AND CHEST TIGHTNESS FAMILY DOCTOR WASNT IN. STATED MD EARLIER THIS WEEK TOLD HIM HE HAD BACTERIAL INFECTION. 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 N Clinical Suspician of Infection? Y Mental Status: 1 - Regular (Normal Baseline) Sepsis Risk:Low Sepsis Risk Have you (or family members/close friends) recently traveled outside the [place]? N If Yes, where/when: Have you had exposure to infectious disease within the past month? TB? Other? Specify: Source patient, RN notes reviewed, old records Exam Limitations no limitations Comment pt with dizzy episodes and has chest pain with recent card cath which was ok and has recently finished z jesica - no loc or fever Cardiac Chest Pain Chest pain indicative of cardiac No Timing/Duration this evening Severity moderate ALLERGIES Coded Allergies: No Known Allergies (11/13/16) Home Medications Active Scripts TAMSULOSIN HCL (Flomax 0.4MG) 0.4 MG PO QHS #30 CAP Prov: 10/30/16 Aspirin (Adult Low Dose Aspirin EC) 81 MG PO DAILY #30 Ref 2 Prov: 09/29/16 Reported Medications Omeprazole (Omeprazole 40MG) 40 MG PO DAILY Fluticasone/Vilanterol (Breo Ellipta 200-25 Mcg INH) 1 EACH IH DAILY #60 Hyoscyamine Sulfate 0.125 MG PO Q4HP PRN BLADDER #60 TAB History Medical History General CAD? No Angina: No IA: No Hypertension? No Hyperlipidemia? Yes CHF? No DVT? No PE? No COPD? Yes Asthma? No Anemia? No GERD? Yes Gastric ulcers? No GI Bleed? No Hernia? No Thyroid Problems? No Hypothyroidism? No CVA? No Seizures? No Diabetes? No Renal Insuffiency? No End Stage Renal Disease? No UTI? No Stones? No BPH? No GB Disease: No Nephritic Syndrome? No Asplenia? No Hepatitis? No Sickle Cell Disease? No Arthritis? No Migraines? No Cataracts? No Glaucoma? No MRSA? No HIV? No TB? No Anxiety? No Depression? No Cancer? No More? Yes Additional hx: 1. PNEUMONIA 2. CHRONIC BRONCHITIS 3. TOBACCO USE Immunization Hx DT/Tetanus 1-4 Years Ago Pneumonia Received In Past Surgical Hx Previous Surgery?Y HEART CATH COLONSCOPY/EGD Family History Family Hx Diabetes Yes CAD Yes Hypertension No Hyperlipidemia No Cancer No TB No Social History Smoking Hx Smoker: Current Every Day Smoker Tobacco: Yes Type Cigarettes Packs/day < 1 Pack Are you/the child exposed to second-hand smoke: Yes Alcohol Alcohol: No Drugs none Review of Systems All Other Systems Reviewed and Negative Constitutional see HPI, denies fever, other Eyes denies drainage ENT denies: ear discharge, epistaxis, throat pain. Respiratory see HPI, denies cough, shortness of breath, denies wheezing Cardiovascular see HPI, chest pain, denies palpitations, denies syncope, other Gastrointestinal denies abdominal pain, denies diarrhea, denies vomiting Genitourinary denies: dysuria, frequency, hesitancy, hematuria. Musculoskeletal denies back pain, denies joint pain, denies joint swelling, denies neck pain Skin denies rash Psychiatric/Neurological denies headache, denies seizure Physical Exam Vital Signs Vital Signs Date Time Temp Pulse Resp B/P Pulse O2 O2 Flow FiO2 Ox Delivery Rate 12/12 2151 106 102/62 12/112 85 117/73 12/111 85 20 117/73 96 12/110 90 96/64 12/11 2109 74 107/70 12/11 2109 74 20 107/70 97 12/11 1953 98.3 99 18 120/76 96 - WBC >12,000 or <4,000 or 10% bands? 2 or more SIRS Criteria Met? B/P:/ MAP:90 Creatinine >2.0? UA output<0.5ml/kg/hr for 2 hrs? Platelet count >100,000? Lactate >2.0mmol/1? INR >1.2 or PTT > than 60 sec? Evidence of Organ Dysfunction? Provider documented clinical suspician of infection? Y Sepsis Criteria Count: 1 Sepsis Risk: Low Sepsis Risk General Appearance no apparent distress Eye Exam - bilateral eye PERRL, bilateral eye EOMI Ear, Nose, Throat normal ENT inspection Neck supple Respiratory Status No: respiratory distress. Lung Sounds bilateral: lungs clear. 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 No Results/Orders Laboratory Tests 12/11/162229: Urine Color YELLOW, Urine Appearance CLEAR, Urine pH 6.0, Ur Specific [place] <= 1.005, Urine Protein NEGATIVE, Urine Ketones NEGATIVE, Urine Blood NEGATIVE, Urine Nitrate NEGATIVE, Urine Bilirubin NEGATIVE, Urine Urobilinogen 0.2, Ur Leukocyte Esterase NEGATIVE, Amorphous Sediment TRACE, Urine Glucose NEGATIVE 12/11/162019: ESR 10 12/11/162019: Sodium 138, Potassium 4.1, Chloride 102, Carbon Dioxide 28, BUN 19 H, Creatinine 1.2, Estimated Creat Clear 68, Estimated GFR (MDRD) 61, Glucose 185 H, Calcium 8.3 L, Total Bilirubin 0.3, AST 11 L, ALT 23, Alkaline Phosphatase 71, Creatine Kinase 56, CK-MB (CK-2) Rel Index 0.9, CK and CKMB Interp < 0.5, Troponin I < 0.02, Total Protein 6.9, Albumin 3.5, Globulin 3.4 H, Albumin/ Globulin Ratio 1.0 L, WBC 8.3, RBC 4.62, Hgb 14.2, Hct 42.9, MCV 92.9, RDW 14.4 , Plt Count 198, MPV 7.4, Gran % 70.8, Gran # 5.9, Lymphocytes % 19.5, Monocytes % 5.5, Eosinophils % 3.6, Basophils % 0.5, Lymphocytes # 1.6, Monocytes # 0.5, Eosinophils # 0.3, Basophils # 0.0, PUBS MCHC 33.2, MCH 30.8 Current Medication Orders Sig/Carlos Start time Last Medication Dose Route Stop Time Status Admin Sodium Chloride 1,000 ML .STK-MED ONE 12/11 2030 DC IV Sodium Chloride 10 ML PRN PRN 12/11 2029 AC IV 12/13 2023 Sodium Chloride 1,000 ML .Q1H1M 12/11 2029 DC 12/11 IV 12/11 Sodium Chloride 10 ML PRN PRN 12/11 2029 AC IV 12/12 2024 Aspirin 324 MG ONCE ONE 12/11 2014 DC 12/11 PO 12/11 Aspirin 0 .STK-MED ONE 12/12 2003 DC .ROUTE Orders Procedure Date/time Status SED RATE 12/11 2029 Complete C-REACTIVE PROTEIN 12/11 2029 Complete ELECTROCARDIOGRAM REQUEST 12/11 2024 Active CHEST(2 VIEWS-NOT PORTABLE) 12/11 2024 Active IV SALINE LOCK 12/11 2024 Active ORTHOSTATIC B/P 12/11 2024 Active URINALYSIS/COMPLETE 12/11 2024 Complete COMPLETE METABOLIC PANEL 12/11 2024 Complete CBC WITH AUTO DIFF 12/11 2024 Complete CARDIAC ENZYMES 12/11 2024 Complete ELECTROCARDIOGRAM REQUEST 12/11 2002 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 ST/Twave chgs XRAY/CT/US XRAY/CT/US XRAY chest XR interpretation by reviewed by me Xray Results normal/NAD Departure Departure Time of Disposition 230 Disposition DC Home or Self Care(routine) Clinical Impression Primary Impression: Dizziness Condition STABLE Referrals Yahaira Gordon MD (Family) Patient Instructions DI for Dizziness-Nonvertigo Additional Instructions call pcp in am for follow up Discharge Counseling Counseled pt/family regarding diagnosis, test results, follow up needs ED Critical Care Critical Care No at [id number]
[2016-12-11 20:31] LABS: HEMOGLOBIN 14.2 g/dL (14.1-18.0); LYMPH # 1.6 K/mm3 (0.7-4.5); LYMPH % 19.5 % (10-50)
[2016-12-11 21:00] LABS: BUN 19 mg/dL (7-18)
[2016-12-11 21:01] LABS: GFR (ESTIMATED) 61 ML/MIN (>60)
[2016-12-11 22:56] LABS: URINE BILIRUBIN - DIPSTICK NEGATIVE (NEG); URINE BLOOD NEGATIVE (NEG)
[2016-12-11 23:16] VITALS: BP 110/70
--- NOTE | 2016-12-12 08:22 | RADIOLOGY REPORT PS360 ---
CHEST(2 VIEWS-NOT PORTABLE) HISTORY: chest pain ORDERING PHYSICIAN: Keenan Mistry MD PATIENT AGE: 61 years COMPARISON: 12/07/2016 FINDINGS: The cardiomediastinal silhouette and pulmonary vascularity are within normal limits. Calcified granuloma is present in the left upper lobe. The lungs are otherwise clear No acute bony abnormalities. IMPRESSION: No change with no acute finding
== END 2016-12-11 23:17 | disposition home or self-care (01) ==
LOC: ER 19:49
PROVIDERS: Emergency Medicine
DX: R42 Dizziness and giddiness (principal); J44.9 Chronic obstructive pulmonary disease, unspecified; Z72.0 Tobacco use; K21.9 Gastro-esophageal reflux disease without esophagitis; R07.89 Other chest pain

== ENCOUNTER → 2017-02-15 | Outpatient (CLI) | payer BC ==
--- NOTE | 2017-02-15 14:17 | RADIOLOGY REPORT PS360 ---
[id number] VIEWS HISTORY: Left shoulder pain CP,CAD,LT SHOULDER PAIN ORDERING PHYSICIAN: Yahaira Gordon MD PATIENT AGE: 61 years COMPARISON: None FINDINGS: No fracture or dislocation. No lytic or blastic change. There is normal mineralization. There is some cortical irregularity involving the greater tuberosity. This may be seen with rotator cuff disease. No significant subacromial stenosis. Mild osteoarthritic change acromioclavicular joint Incidental calcified granuloma is present in the left upper lobe. IMPRESSION: 1. Mild acromioclavicular arthropathy. 2. Cortical irregularity of the greater tuberosity which may be seen with rotator cuff disease
--- NOTE | 2017-02-16 07:24 | RADIOLOGY REPORT PS360 ---
CT CHEST W/WO CONTRAST HISTORY: Atypical chest pain CHEST PAIN ORDERING PHYSICIAN: Yahaira Gordon MD PATIENT AGE: 61 years TECHNIQUE: Helical acquisition obtained following the intravenous administration of 50 mL of Isovue 370 .. Axial, sagittal, and coronal reformatted images are generated and reviewed. COMPARISON: 05/14/2016 FINDINGS: There are coronary artery calcifications indicating coronary artery disease. No evidence of aortic aneurysm or central pulmonary embolus. There is normal heart size. Calcified nodes are present within the mediastinum. No mediastinal or hilar adenopathy. There are 2 noncalcified nodules in the right upper lobe each measuring approximately 5 mm. These are not significantly changed. Calcified granuloma is present in the left upper lobe posteriorly. No new nodules are evident. No effusions or infiltrates. There is mild hyperinflation. Upper abdominal images demonstrates a 4 cm right renal cyst. Nonobstructing 3 mm stone is present in the upper pole the left kidney. A 5 mm hyperdensity projects off the posterior aspect of the left kidney probably related to a hyperdense cyst. No acute bony anomalies. IMPRESSION: 1. There are 2 right upper lobe pulmonary nodules which are stable both measuring 5 mm. 2. Coronary artery disease. 3. Old granulomatous disease 4. No acute finding
--- NOTE | 2017-02-16 16:50 | RADIOLOGY REPORT PS360 ---
PROCEDURE: 2-D M-mode and color Doppler study INDICATIONS FOR THE TEST: Chest pain + COPD+ Heart Murmur Tobacco Smoking+ Palpitations Fatigue Syncope Edema Hypertension Diabetes Mellitus Rheumatic Fever SOB [place] Obesity Hyperlipidemia+ Family History HD Additional History PATIENT INFORMATION HEIGHT:71 WEIGHT:170 GENDER: Male B/P:117/77 2-D/M-MODE INTERPRETATION: 2-D MEASUREMENTS OBSERVED VALUES IN CMS Right Ventricular Dimension (RVDd) 2.2 Interventricular Septum (Thickness)(IVsd) 1.0 Left Ventricular Internal Dimensions(LVIDd) 5.3 Left Ventricular Posterior Wall (Thickness)(LVPWd) 0.9 Aortic Root 4.4 Aortic Cusp Separation 2.2 Left Atrial Dimensions (LAD) 3.4 2D 1. Left atrium is qualitatively mildly enlarged, left ventricle is normal size, there is no concentric left ventricular hypertrophy, visually estimated ejection fraction 50% with no obvious regional wall motion abnormality. 2. The right atrium and right ventricle are relatively normal size and function. 3. The aortic valve is minimally thickened and fibrosed. 4. The mitral and tricuspid valve are grossly normal. 5. The pulmonic valve is poorly visualized. 6. No significant pericardial effusion noted. DOPPLER INTERROGATION: Doppler interrogation of the aortic, mitral and tricuspid valvular presence of mild mitral and tricuspid regurgitation, tricuspid and jet velocity insufficient for calculation of the right ventricular systolic pressure, grade 1 diastolic dysfunction seen with tissue Doppler evidence of raised left atrial pressure. CONCLUSION: 1. Mildly enlarged left atrium, normal left ventricular size, visually estimated ejection fraction 50% with no obvious regional wall motion abnormality, grade 1 diastolic dysfunction seen with tissue Doppler evidence of raised left atrial pressure. 2. Mild mitral and tricuspid regurgitation. 3. No significant pericardial effusion noted.
== END ==
LOC: RAD 13:29
DX: R07.89 Other chest pain (principal); R07.9 Chest pain, unspecified; I25.10 Atherosclerotic heart disease of native coronary artery without angina pectoris; M25.512 Pain in left shoulder
CPT/HCPCS: Q9967